=== PATIENT | male | born 1995 | race Caucasian/White ===

== ENCOUNTER 2017-08-09 18:52 | Emergency (ER) | payer MEDICAID, OTHER ==
[~2017-08-09] VITALS: Ht 157.5 cm; Wt 61.6 kg
[2017-08-09 18:57] VITALS: BP 128/85
[2017-08-09] MEDS ORDERED: KETOROLAC 30 MG/1 ML IM ONE (19:30)
[2017-08-09] MEDS ORDERED: METHOCARBAMOL 750 MG TABLET PO ONE (19:30)
[2017-08-09] MEDS ORDERED: METHOCARBAMOL 750 MG TABLET ONE (19:36)
[2017-08-09] MEDS ORDERED: KETOROLAC 30 MG/1 ML ONE (19:36)
== END 2017-08-09 20:18 | disposition home or self-care (01) ==
LOC: ED 20:05
DX: S16.1XXA Strain of muscle, fascia and tendon at neck level, initial encounter (principal); X58.XXXA Exposure to other specified factors, initial encounter; Y93.89 Activity, other specified; Y99.0 Civilian activity done for income or pay; Y92.69 Other specified industrial and construction area as the place of occurrence of the external cause
CPT/HCPCS: 99283

== ENCOUNTER 2018-10-09 19:40 | Emergency (ER) | payer SELFPAY ==
[~2018-10-09] VITALS: Ht 165.1 cm; Wt 67.0 kg
[2018-10-09 19:51] VITALS: BP 134/79
== END 2018-10-09 20:42 | disposition home or self-care (01) ==
LOC: ED 20:21
DX: S39.012A Strain of muscle, fascia and tendon of lower back, initial encounter (principal); M94.0 Chondrocostal junction syndrome [Tietze]; M41.84 Other forms of scoliosis, thoracic region; G89.11 Acute pain due to trauma; F32.9 Major depressive disorder, single episode, unspecified; X58.XXXA Exposure to other specified factors, initial encounter; Y93.89 Activity, other specified; Y92.89 Other specified places as the place of occurrence of the external cause; Y99.8 Other external cause status
CPT/HCPCS: 71046; 72110; 99283